=== PATIENT | female | born 1970 | race Caucasian/White ===

== ENCOUNTER 2020-01-04 15:22 | Emergency (ER) | payer SELFPAY ==
[~2020-01-04] VITALS: Ht 154.9 cm; Wt 120.0 kg
[~2020-01-04 15:22] MED LIST: AVELOX400 MG OR; CORTISPORIN OTI10 ML AD; NO HOEM MEDS; PAIN RELIEF EX500 MG PO; PERCOCET 5/325M1 TAB PO; THERAFL PO; TUSSIONEX1 ML OR; ULTRAM50 M1 PO
[2020-01-04 16:17] LABS: HEMATOCRIT 44.1 % (37.0-47.0); HEMOGLOBIN 14.1 g/dl (12.0-16.0); IMMATURE GRANULOCYTES 0.2 % (0.0-5.0); MEAN CELL VOLUME 82.7 fL CALC (80.0-100.0); MEAN CORPUSCULAR HGB 26.5 pG CALC (26.0-32.0); NEUT# 9.24 thou/uL (2.00-7.15); RED BLOOD COUNT 5.33 mill/uL (4.20-5.60); RED CELL DISTRI WIDTH 13.3 % (11.5-15.5)
[2020-01-04 16:34] LABS: ALBUMIN 4.6 g/dL (3.2-5.0); ALKALINE PHOSPHATASE 124 u/l (38-126); AMYLASE 59 u/l (30-110); ANION GAP 15 (6-22 (CALC)); BILIRUBIN, TOTAL 0.5 mg/dL (0.0-1.4); BUN 12 mg/dL (7-17); BUN/CREATININE RATIO 17 (12-20 (CALC)); CARBON DIOXIDE 21 mmol/l (22-30); CHLORIDE 104 mmol/l (95-108); CREATININE 0.7 mg/dL (0.5-1.0); GFR > 60 ML/MIN (>=60 (CALC)); GFR FOR AFR.AMER. > 60 ML/MIN (>=60 (CALC)); LIPASE 50 u/l (23-300); POTASSIUM 4.2 mmol/l (3.5-5.1); SGOT/AST 46 u/l (14-36); SODIUM 135 mmol/l (137-146)
[2020-01-04 17:13] LABS: URINE BILIRUBIN - DIPSTICK NEGATIVE (NEGATIVE); URINE BLOOD DIPSTICK NEGATIVE (NEGATIVE); URINE COLOR YELLOW; URINE GLUCOSE - DIPSTICK NEGATIVE (NEGATIVE); URINE KETONE NEGATIVE (NEGATIVE); URINE LEUK ESTERASE NEGATIVE (NEGATIVE); URINE NITRITE - DIPSTICK NEGATIVE (Negative); URINE PH 6.5 (4.5-8.0); URINE PROTEIN - DIPSTICK NEGATIVE (NEG-TRACE); URINE UROBILINOGEN - DIPSTICK 0.2 E.U./dL (0.2)
[2020-01-04 18:37] VITALS: BP 179/84
== END 2020-01-04 18:37 | disposition short-term general hospital (02) | DRG 446 ==
LOC: ED 15:22
DX: K80.70 Calculus of gallbladder and bile duct without cholecystitis without obstruction (principal); F17.200 Nicotine dependence, unspecified, uncomplicated
CPT/HCPCS: Q9967

== ENCOUNTER 2020-12-27 12:00 | Emergency (ER) | payer OTHER ==
[~2020-12-27] VITALS: Ht 154.9 cm; Wt 81.8 kg
[2020-12-27] MEDS ORDERED: ZOFRAN4 MG/TAB PO (13:41)
[2020-12-27] MEDS ORDERED: DECADRON6 MG PO (13:41)
[2020-12-27 14:06] VITALS: BP 111/62
== END 2020-12-27 14:10 | disposition home or self-care (01) | DRG 179 ==
LOC: ED 12:00
DX: U07.1 COVID-19 (principal); F17.210 Nicotine dependence, cigarettes, uncomplicated

== ENCOUNTER 2022-09-04 10:44 | Emergency (ER) | payer SELFPAY ==
[~2022-09-04] VITALS: Ht 154.9 cm; Wt 90.0 kg
[~2022-09-04 10:44] MED LIST changes: +DECADRON6 MG PO; +ZOFRAN4 MG/TAB PO
[2022-09-04 10:51] VITALS: BP 117/92
[2022-09-04] MEDS ORDERED: SILVADENE1 % EX (10:58)
[2022-09-04] MEDS ORDERED: ZOFRAN4 MG/TAB PO (10:59)
[2022-09-04] MEDS ORDERED: IBUPROFEN600 MG PO (10:59)
[2022-09-04] MEDS ORDERED: SILVER SULFA1 % EX (10:59)
[2022-09-04 11:01] VITALS: BP 128/109
[2022-09-04 11:19] VITALS: BP 128/80
== END 2022-09-04 11:26 | disposition home or self-care (01) | DRG 935 ==
LOC: ED 10:44
DX: T24.212A Burn of second degree of left thigh, initial encounter (principal); X12.XXXA Contact with other hot fluids, initial encounter

== ENCOUNTER 2024-05-26 21:16 | Emergency (ER) | payer SELFPAY ==
[~2024-05-26] VITALS: Ht 154.9 cm; Wt 81.6 kg
[~2024-05-26 21:16] MED LIST changes: +IBUPROFEN600 MG PO; +SILVADENE1 % EX; +SILVER SULFA1 % EX
[2024-05-26] MEDS ORDERED: IPRATROPIUM-Albuterol 0.5MG-2.5MG/3 ML NEB ONE (22:00)
[2024-05-26] MEDS ORDERED: methylPREDNISolone SODIUM SUCC 125 MG/2 ML SDV IV ONE (22:00)
[2024-05-26] MEDS ORDERED: ALBUTEROL SULFATE 2.5 MG VIAL IN ONE (22:00)
[2024-05-26] MEDS ORDERED: guaiFENesin-CODEINE 200-20 MG/10 ML UDC PO ONE (22:00)
[2024-05-26 22:26] LABS: BASO% 0.4 % (0-3); EOS% 0.3 % (0-8); HEMATOCRIT 41.7 % (37.0-47.0); HEMOGLOBIN 13.4 g/dl (12.0-16.0); IMMATURE GRANULOCYTES 0.4 % (0.0-5.0); LYMPH% 8.8 % (15-41); MEAN CELL VOLUME 83.6 fL CALC (80.0-100.0); MEAN CORPUSCULAR HGB 26.9 pG CALC (26.0-32.0); MEAN CORPUSCULAR HGB CONC 32.1 g/dL CAL (32.0-36.0); MONO% 10.8 % (2-13); NEUT# 5.97 thou/uL (2.00-7.15); NEUT% 79.3 % (42-76); RED BLOOD COUNT 4.99 mill/uL (4.20-5.60); RED CELL DISTRI WIDTH 13.1 % (11.5-15.5)
[2024-05-26 22:37] LABS: ALBUMIN 4.3 g/dL (3.2-5.0); BILIRUBIN, TOTAL 0.4 mg/dL (0.02-1.3); CREATININE 0.9 mg/dL (0.5-1.0); POTASSIUM 3.6 mmol/l (3.5-5.1); TOTAL PROTEIN 7.6 g/dL (6.3-8.2)
[2024-05-26] MEDS ORDERED: OSELTAMIVIR PHOSPHATE 75 MG/TAB CAP PO ONE (23:25)
[2024-05-26 23:35] VITALS: BP 145/85
[2024-05-26] MEDS ORDERED: VENTOLIN HFA IN (23:35)
[2024-05-26] MEDS ORDERED: BENZONATATE200 MG PO (23:35)
[2024-05-26] MEDS ORDERED: TAM75CAP PO (23:35)
== END 2024-05-27 00:07 | disposition home or self-care (01) | DRG 195 ==
LOC: ED 21:16
PROVIDERS: Family Medicine
DX: J10.1 Influenza due to other identified influenza virus with other respiratory manifestations (principal); F17.200 Nicotine dependence, unspecified, uncomplicated; Z20.822 Contact with and (suspected) exposure to COVID-19